=== PATIENT | male | born 1950 | race Caucasian/White ===

== ENCOUNTER 2023-07-30 15:42 | Emergency (ER) | payer MEDICARE, OTHER ==
[~2023-07-30] VITALS: Ht 177.8 cm; Wt 69.0 kg
[2023-07-30 15:43] VITALS: BP 182/98; TEMP 99.5; O2SAT 99
[2023-07-30 21:09] LABS: BASO % 0.2 % (0.0-1.0); HEMATOCRIT 38.7 % (42.0-52.0); HEMOGLOBIN 13.2 g/dl (13.5-17.5); LYMPH # 1.2 10^3/uL (1.5-5.0); LYMPH % 7.4 % (24.0-44.0); MEAN CORPUSCULAR HEMOGLOBIN 30.6 pg (27.0-33.0); MEAN CORPUSCULAR HGB CONC 34.1 g/dl (32.0-36.5); MEAN CORPUSCULAR VOLUME 89.6 fl (80.0-96.0); MONO # 1.1 10^3/uL (0.0-0.8); MONO % 7.2 % (2.0-8.0); NEUTROPHILS # 13.3 10^3/uL (1.5-8.5); NEUTROPHILS % 84.9 % (36.0-66.0); PLATELET COUNT, AUTOMATED 148 10^3/uL (150-450); RED BLOOD COUNT 4.32 10^6/uL (4.30-6.10); WHITE BLOOD COUNT 15.6 10^3/uL (4.0-10.0)
[2023-07-30] MEDS ORDERED: ISOVUE-370 76% 100ML VIAL As Ordered ONE (21:26)
[2023-07-30] MEDS ORDERED: PHEN-372 PO ×2 (22:46→23:06)
[2023-07-30] MEDS ORDERED: CIPR500T39 PO ×2 (22:46→23:06)
[2023-07-30] MEDS ORDERED: PHENAZOPYRIDINE 100 MG TAB PO ONE (22:50)
[2023-07-30] MEDS ORDERED: CIPROFLOXACIN 500MG TABLET PO ONE (22:50)
== END 2023-07-30 23:06 | disposition home or self-care (01) ==
LOC: M ED 15:42
DX: N30.01 Acute cystitis with hematuria (principal); Z88.2 Allergy status to sulfonamides
CPT/HCPCS: 74178; 80047; 81000; 81015; 85025; 87086; 99282; Q9967